=== PATIENT | female | born 1975 | race Caucasian/White ===

== ENCOUNTER → 2019-12-01 | Outpatient (CLI) | payer BC ==
[2019-12-01 09:19] LABS: Basophils # (A) 0.1 k/uL (0-0.2); Basophils % (A) 1 %; Eosinophils # (A) 0.1 k/uL (0-0.7); Eosinophils % (A) 2 %; HCT 42.1 % (34.0-46.0); HGB 13.9 gm/dL (11.4-16.0); Lymphocytes # (A) 1.4 k/uL (1.0-4.8); Lymphocytes % (A) 20 %; MCH 31.1 pg (25.0-35.0); MCV 94.4 fL (80.0-100.0); Mean Platelet Volume 6.6; Monocytes # (A) 0.4 k/uL (0-1.0); Monocytes % (A) 6 %; Neutrophils # (A) 4.9 k/uL (1.3-7.7); Neutrophils % (A) 69 %; Platelet Count 352 k/uL (150-450); RBC 4.46 m/uL (3.80-5.40); RDW 11.8 % (11.5-15.5)
[2019-12-01 17:52] LABS: African American GFR (CKD) 89.5 (60.0-200.0); Albumin 4.6 g/dL (3.80-4.90); Albumin/Globulin Ratio 1.7 (1.60-3.17); Anion Gap 9.5 mmol/L (4.00-12.00); BUN/Creat Ratio 21.11 Ratio (12.00-20.00); Calcium 9.6 mg/dL (8.7-10.3); Carbon Dioxide 23.5 mmol/L (21.6-31.8); Chol/HDL Ratio 3.13; Globulin 2.7 g/dL (1.6-3.3); LDL Cholesterol,Calculated 95.8 mg/dL (0.0-131.0); Non-African American GFR(CKD) 77.2 (60.0-200.0); Potassium 4.7 mmol/L (3.5-5.5); Total Bilirubin 0.9 mg/dL (0.2-1.2); Total Protein 7.3 g/dL (6.2-8.2); VLDL Calculation 23.2 mg/dL (5.00-40.00)
[2019-12-01 18:28] LABS: Protein, Total 7.4 g/dL (6.2-8.2)
[2019-12-01 19:36] LABS: LDL Cholesterol, Direct 114.4 mg/dL (0.0-129.0)
[2019-12-02 08:54] LABS: Free Kappa Lt Chain Qnt, Serum 1.24 mg/dL (0.33-1.94)
[2019-12-02 13:09] LABS: Albumin 4.45 g/dL (3.80-4.90); Gamma Globulin 1.02 g/dL (0.70-1.50)
== END | disposition home or self-care (01) ==
LOC: LABWHC1 07:58
PROVIDERS: ATTEND Internal Medicine
DX: D47.2 Monoclonal gammopathy (principal); E78.00 Pure hypercholesterolemia, unspecified
CPT/HCPCS: 36415; 80053; 80061; 82232; 82306; 82784; 83615; 83721; 83883; 84165; 85025; 86334

== ENCOUNTER → 2020-11-30 | Outpatient (CLI) | payer BC ==
--- NOTE | 2020-11-30 13:49 | XR ---
EXAMINATION TYPE: XR bone survey complete DATE OF EXAM: 11/30/2020 COMPARISON: None HISTORY: Monoclonal gammopathy TECHNIQUE: Multiple images over the axial and appendicular skeleton FINDINGS: Cervical spine: Vertebral bodies are intact. Posterior spinal lamellar line is intact. No suspicious lytic or sclerotic lesions. Chest x-ray: Heart and mediastinum are normal. Pulmonary vasculature is normal. Lungs are clear. No s uspicious osseous abnormality. Bilateral humeri: Joint spaces are preserved. No suspicious lytic lesions. Calvarium: Skull is examined in 2 views. No suspicious lytic lesions are evident. Pelvis: Sacroiliac joints and symphysis pubis are normal. Femoral heads articulate with the acetabulu m. Bowel gas is present. No suspicious lytic lesions evident. Thoracic spine: Scoliosis is present with the convexity to the right centered at T8. There are 12 tho racic type vertebral bodies. The pedicles are intact. Disc heights are preserved. Vertebral body heig hts are preserved. No suspicious lytic lesions are evident. Lumbar spine: There are 5 lumbar-type vertebral bodies. Pedicles are intact. Disc height and vertebra l body heights are preserved. No suspicious lytic lesions. Bilateral femurs: Femoral heads articulate with the acetabulum. Knee joint space is normal. No suspic ious lytic lesions evident. IMPRESSION: 1. No suspicious lytic lesions to constipation abnormal laboratory results
[2020-11-30 14:19] LABS: Basophils # (A) 0.1 k/uL (0-0.2); Basophils % (A) 1 %; Eosinophils # (A) 0.1 k/uL (0-0.7); Eosinophils % (A) 1 %; HCT 41.4 % (34.0-46.0); HGB 13.7 gm/dL (11.4-16.0); Lymphocytes # (A) 1.8 k/uL (1.0-4.8); Lymphocytes % (A) 24 %; MCH 30.7 pg (25.0-35.0); MCHC 33.2 g/dL (31.0-37.0); MCV 92.6 fL (80.0-100.0); Mean Platelet Volume 7.4; Monocytes # (A) 0.4 k/uL (0-1.0); Monocytes % (A) 6 %; Neutrophils % (A) 66 %; Platelet Count 356 k/uL (150-450); RBC 4.47 m/uL (3.80-5.40); WBC 7.6 k/uL (3.8-10.6)
[2020-11-30 14:39] LABS: ALT 49 U/L (4-34); AST 33 U/L (14-36); African American GFR (CKD) >90 (>60 ml/min/1.73 sqM); Albumin 4.7 g/dL (3.5-5.0); Alkaline Phosphatase 55 U/L (38-126); Anion Gap 12 mmol/L; Blood Urea Nitrogen 17 mg/dL (7-17); Carbon Dioxide 20 mmol/L (22-30); Chloride 106 mmol/L (98-107); Glucose 87 mg/dL (74-99); LDH 496 U/L (313-618); Non-African American GFR(CKD) 80 (>60 ml/min/1.73 sqM); Sodium 138 mmol/L (137-145); Total Bilirubin 1.1 mg/dL (0.2-1.3); Total Protein 8.1 g/dL (6.3-8.2)
[2020-11-30 14:50] LABS: Potassium 4.5 mmol/L (3.5-5.1)
[2020-11-30 22:04] LABS: Protein, Total 7.5 g/dL (6.2-8.2)
== END | disposition home or self-care (01) ==
LOC: RADXRMAIN 11:53
PROVIDERS: ATTEND Internal Medicine
DX: D47.2 Monoclonal gammopathy (principal)
CPT/HCPCS: 77075; 80053; 82232; 83615; 83883; 84165; 85025; 86334

== ENCOUNTER → 2022-12-04 | Outpatient (CLI) | payer BC ==
[2022-12-04 17:37] LABS: Basophils # (A) 0.06 X 10*3/uL (0.00-0.10); Eosinophils # (A) 0.14 X 10*3/uL (0.04-0.35); Eosinophils % (A) 2.4 %; HCT 41.8 % (37.2-46.3); HGB 13.8 d/dL (12.0-15.0); Lymphocytes # (A) 2.17 X 10*3/uL (0.90-5.00); MCH 29.7 pg (27.0-32.0); MCV 90.1 FL (80.0-97.0); Mean Platelet Volume 9.5 FL (9.5-12.2); Monocytes # (A) 0.71 X 10*3/uL (0.20-1.00); Monocytes % (A) 12.1 %; NRBC Per 100 WBC 0 X 10*3/uL (0.00-0.01); Neutrophils # (A) 2.78 X 10*3/uL (1.80-7.70); Neutrophils % (A) 47.3 %; Platelet Count 373 X 10*3/uL (140-440); RBC 4.64 X 10*6/uL (4.10-5.20); RDW 12.2 % (11.5-14.5); WBC 5.87 X 10*3/uL (4.50-10.00)
[2022-12-04 20:44] LABS: ALT 131 U/L (8-44); AST 50 U/L (13-35); Albumin 4.7 d/dL (3.8-4.9); Albumin/Globulin Ratio 1.62 Ratio (1.60-3.17); Alkaline Phosphatase 106 U/L (41-126); Blood Urea Nitrogen 16.8 mg/dL (9.0-27.0); Calcium 10.4 mg/dL (8.7-10.3); Carbon Dioxide 24.5 mmol/L (21.6-31.8); Chloride 106 mmol/L (96-109); Globulin 2.9 d/dL (1.6-3.3); Glucose 92 mg/dL (70-110); LDH 166 U/L (120-246); Potassium 4.3 mmol/L (3.5-5.5); Protein, Total 7.8 d/dL (6.2-8.2); Sodium 143 mmol/L (135-145); Total Bilirubin 0.7 mg/dL (0.3-1.2); Total Protein 7.6 d/dL (6.2-8.2)
[2022-12-05 16:43] LABS: Free Kappa Lt Chain Qnt, Serum 2.55 mg/dL (0.33-1.94); Free Lambda Lt Chain Qnt, Seru 1.01 mg/dL (0.57-2.63)
[2022-12-05 19:19] LABS: Gamma Globulin 1.04 d/dL (0.70-1.50)
== END | disposition home or self-care (01) ==
LOC: LABWHC1 11:35
PROVIDERS: ATTEND Internal Medicine
DX: D47.2 Monoclonal gammopathy (principal)
CPT/HCPCS: 36415; 80053; 83615; 83883; 84165; 85025; 86334

== ENCOUNTER → 2024-09-01 | Outpatient (CLI) | payer BC ==
--- NOTE | 2024-09-01 19:28 | CT ---
EXAMINATION TYPE: CT abdomen pelvis w con DATE OF EXAM: 09/01/2024 7:09 PM COMPARISON: None CLINICAL INDICATION: Female, 49 years old with history of R10.31 RLQ PAIN; RLQ pain since Friday. TECHNIQUE: Axial CT abdomen pelvis w con;Sagittal and coronal reformats were created on a separate w orkstation. Contrast used:100 ml mL of Isovue 300 with IV Contrast, (none if empty) Oral contrast used: with Oral Contrast (none if empty) CT DLP: 1342.2 mGycm, Automated exposure control for dose reduction was used. FINDINGS: LOWER CHEST: Unremarkable ABDOMEN LIVER: Unremarkable GALLBLADDER AND BILE DUCTS: The gallbladder is surgically absent. PANCREAS: Unremarkable. SPLEEN: Unremarkable. ADRENAL GLANDS: Unremarkable. KIDNEYS AND URETERS: Mild dilation of the right ureter which is more focally dilated as it crosses ov er the right common iliac artery. No evidence of hydronephrosis or obstructing renal calculus. The ur eters are unremarkable. PELVIS BLADDER: No evidence for wall thickening or mass given limitations of exam. REPRODUCTIVE: Unremarkable. ABDOMEN & PELVIS STOMACH AND BOWEL: No evidence of bowel obstruction. Scattered colonic diverticula. The cecum is redu ndant and terminating in the left lower quadrant with the apex in the left lower quadrant. PERITONEUM/RETROPERITONEUM: No evidence of pneumoperitoneum or free fluid. VASCULATURE: No evidence of aortic aneurysm. MUSCULOSKELETAL: No acute osseous abnormalities LYMPH NODES: No gross evidence for lymphadenopathy. SOFT TISSUE/ABDOMINAL WALL: Fat-containing umbilical hernia. Hernia repair anchors in the right ingui nal region. IMPRESSION: 1. Mild right hydronephrosis. No obstructing calculus definitively visualized. Correlate for recentl y passed stone. No other acute process identified in the abdomen or pelvis. 2. Right inguinal repair changes with anchors in place. 3. The cecum is redundant and terminating in the left lower quadrant with the apex in the left lower quadrant. The appendix is normal. [facility], , 09/01/2024 7:25 PM
== END | disposition home or self-care (01) ==
LOC: RADCTMAIN 17:03
PROVIDERS: ATTEND Physician Assistant
DX: R10.31 Right lower quadrant pain (principal); N13.30 Unspecified hydronephrosis
CPT/HCPCS: 74177; Q9967